=== PATIENT | male | born 1960 | race Caucasian/White ===

== ENCOUNTER 2016-05-14 22:11 | Observation (INO) | payer BC ==
[~2016-05-14] VITALS: Ht 175.3 cm; Wt 117.9 kg
[2016-05-14 23:30] VITALS: BP 132/81
[2016-05-15] MEDS ORDERED: TRAMADOL 50 MG TABLET. PO PRN (00:30)
[2016-05-15] MEDS ORDERED: ZOLPIDEM 5 MG TABLET. PO PRN (00:30)
[2016-05-15] MEDS ORDERED: ONDANSETRON ODT 4 MG TAB.RAPDIS PO PRN (00:30)
[2016-05-15] MEDS ORDERED: DIPHENHYDRAMINE HCL 25 MG CAPSULE PO PRN (00:30)
[2016-05-15 03:00] VITALS: BP 131/64
[2016-05-15 05:24] LABS: BASO % 0 % (0-3); EOS % 0 % (0-3); HEMATOCRIT 44.2 % (39.0-53.0); HEMOGLOBIN 14.7 g/dL (13.0-17.5); LYMPH # 0.7 x10^3/uL (1.0-4.8); LYMPH % 9 % (24-48); MEAN CORPUSCULAR HEMOGLOBIN 31 pg (25-35); MEAN CORPUSCULAR HGB CONC 33 g/dL (31-37); MEAN CORPUSCULAR VOLUME 92 fL (79-100); MONO % 1 % (0-9); NEUT % 90 % (31-73); PLATELET COUNT 175 x10^3/uL (140-400); RED BLOOD COUNT 4.83 x10^6/uL (4.30-5.70); RED CELL DISTRIBUTION WIDTH 14.4 % (11.5-14.5); WHITE BLOOD COUNT 8.8 x10^3/uL (4.0-11.0)
[2016-05-15 06:08] LABS: ALBUMIN 3.2 g/dL (3.4-5.0); ALBUMIN/GLOBULIN RATIO 0.9 (1.0-1.7); CALCIUM 8.4 mg/dL (8.5-10.1); CREATININE 1.3 mg/dL (0.7-1.3); GFR 57.7; MAGNESIUM 2.3 mg/dL (1.8-2.4); POTASSIUM 4.9 mmol/L (3.5-5.1); TOTAL BILIRUBIN 0.9 mg/dL (0.2-1.0); TOTAL PROTEIN 6.8 g/dL (6.4-8.2)
[2016-05-15 07:00] VITALS: BP 135/77
--- NOTE | 2016-05-15 09:14 | PDOC1 ---
History and Physical Date of Admission Date of Admission DATE: 05/15/16 TIME: 09:07 Identification/Chief Complaint Chief Complaint dizzyness, weakness Source Source: Caregiver, Chart review, Patient History of Present Illness History of Present Illness dizzyness and vertigo symptoms yesterday. worsened, then had word finding difficulties, and change in behavoir per his , Very irritable, then very emotional and tearful, which is not like him He has arm and leg weakness at the time, that he now feels improved. His reports slurred speech yesterday afternoon which he did not notice. Past Medical History Past Medical History multiple concussions, 5 loss of memory events Cardiovascular: HTN Pulmonary: No pertinent hx GI: No pertinent hx Heme/Onc: No pertinent hx Infectious disease: No pertinent hx ENT: No pertinent hx Renal/: No pertinent hx Endocrine: No pertinent hx, Other (Low testosterone) Family History Family History: No Significant Social History Smoke: No ALCOHOL: occassional Drugs: None Current Medications Current Medications Current Medications Tramadol HCl (Ultram) 50 mg PRN Q6HRS PRN PO MODERATE PAIN; Start 05/15/16 at 00:30 Ondansetron HCl (Zofran Odt) 4 mg PRN Q8HRS PRN PO NAUSEA/VOMITING; Start 05/15 at 00:30 Diphenhydramine HCl (Benadryl) 25 mg PRN QHS PRN PO INSOMNIA; Start 05/15/16 at 00:30 Zolpidem Tartrate (Ambien) 5 mg PRN QHS PRN PO INSOMNIA Last administered on t 00:44; Start 05/15/16 at 00:30 Allergies Allergies: Coded Allergies: No Known Drug Allergies (Unverified , 05/15/16) ROS 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, 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, 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 General: YES: Fatigue, No: Appetite, Chills, Malaise, Night Sweats, Other PSYCHOLOGICAL ROS: YES: Irritablity, Memory difficulties, No: Anxiety, Behavioral Disorder, Concentration difficultie, Decreased libido , Depression, Disorientation, Hallucinations, Hostility, Mood Swings, Obsessive thoughts, Other, Physical abuse, Sexual abuse, Sleep disturbances, Suicidal ideation Eyes: No Blurry vision, No Decreased vision, No Double vision, No Dry eyes, No Excessive tearing, No Eye Pain, No Itchy Eyes, No Loss of vision, No Other, No Photophobia, No Scotomata, No Uses contacts, No Uses glasses HEENT: No: Epistaxis, Heacaches, Hearing change, Nasal congestion, Nasal discharge, Oral lesions, Other, Sinus pain, Sneezing, Snoring, Sore Throat, Tinnitus, Vertigo, Visual Changes, Vocal changes Cardiovascular: No Chest Pain, No Edema, No Lt Headedness, No Orthopnea, No Other, No Palpitations, No Paroxysmal Noc. Dyspnea Gastrointestinal: No Abdominal Pain, No Constipation, No Diarrhea, No Hematochezia, No Melena, No Nausea, No Other, No Vomiting Genitourinary: No , No , No , No , No , No , No , No Discharge, No Dysuria, No Flank Pain, No Frequency, No Hematuria, No Incontinence, No Other, No Pain, No Retention, No Urgency Musculoskeletal: Yes Muscular Weakness, No Gait Disturbance, No Joint Pain, No Joint Stiffness, No Joint Swelling, No Muscle Pain, No Other, No Pain In:, No Swelling In: Neurological: No Behavorial Changes, No Bowel/Bladder ControlChng, No Confusion , No Dizziness, No Gait Disturbance, No Headaches, No Impaired Coord/balance, No Memory Loss, No Numbness/Tingling, No Other, No Seizures, No Speech Problems , No Tremors, No Visual Changes, No Weakness Skin: No Acne, No Dry Skin, No Eczema, No Hair Changes, No Lumps, No Mole Changes, No Mottling, No Nail Changes, No Other, No Pruritus, No Rash, No Skin Lesion Changes Physical Exam General: Alert, Oriented X3, Cooperative, No acute distress HEENT: EOMI, Mucous membr. moist/pink Lungs: Clear to auscultation, Normal air movement Heart: S1S2, no gallops, no murmurs Abdomen: Normal bowel sounds, Soft (obese, NT) Rectal Exam: not examined Extremities: No clubbing Skin: No rashes, No breakdown Neuro: Normal speech, Strength at 5/5 X4 ext, Normal tone, Sensation intact, Cranial nerves 3-12 NL Psych/Mental Status: Mental status NL, Mood NL Vitals Vitals Vital Signs Date Time Temp Pulse Resp B/P Pulse Ox O2 Delivery O2 Flow Rate FiO2 05/15/16 03:00 97.7 80 17 131/64 95 Room Air 97.7 Labs Labs Laboratory Tests Test 05/15/16 04:20 05/15/16 04:25 Sodium Level 142mmol/L (136-145) Potassium Level 4.9mmol/L (3.5-5.1) Chloride Level 108mmol/L (98-107) Carbon Dioxide Level 24mmol/L (21-32) Anion Gap 10 (6-14) Blood Urea Nitrogen 11mg/dL (8-26) Creatinine 1.3mg/dL (0.7-1.3) Estimated GFR (Cockcroft-Gault) 57.7 BUN/Creatinine Ratio 8 (6-20) Glucose Level 166mg/dL (70-99) Calcium Level 8.4mg/dL (8.5-10.1) Magnesium Level 2.3mg/dL (1.8-2.4) Total Bilirubin 0.9mg/dL (0.2-1.0) Aspartate Amino Transf (AST/SGOT) 19U/L (15-37) Alanine Aminotransferase (ALT/SGPT) 25U/L (16-63) Alkaline Phosphatase 87U/L (46-116) Total Protein 6.8g/dL (6.4-8.2) Albumin 3.2g/dL (3.4-5.0) Albumin/Globulin Ratio 0.9 (1.0-1.7) White Blood Count 8.8x10^3/uL (4.0-11.0) Red Blood Count 4.83x10^6/uL (4.30-5.70) Hemoglobin 14.7g/dL (13.0-17.5) Hematocrit 44.2% (39.0-53.0) Mean Corpuscular Volume 92fL (79-100) Mean Corpuscular Hemoglobin 31pg (25-35) Mean Corpuscular Hemoglobin Concent 33g/dL (31-37) Red Cell Distribution Width 14.4% (11.5-14.5) Platelet Count 175x10^3/uL (140-400) Neutrophils (%) (Auto) 90% (31-73) Lymphocytes (%) (Auto) 9% (24-48) Monocytes (%) (Auto) 1% (0-9) Eosinophils (%) (Auto) 0% (0-3) Basophils (%) (Auto) 0% (0-3) Neutrophils # (Auto) 8.0x10^3uL (1.8-7.7) Lymphocytes # (Auto) 0.7x10^3/uL (1.0-4.8) Monocytes # (Auto) 0.1x10^3/uL (0.0-1.1) Eosinophils # (Auto) 0.0x10^3/uL (0.0-0.7) Basophils # (Auto) 0.0x10^3/uL (0.0-0.2) Thyroid Stimulating Hormone (TSH) 0.498uIU/mL (0.358-3.74) Laboratory Tests Test 05/15/16 04:20 05/15/16 04:25 Sodium Level 142mmol/L (136-145) Potassium Level 4.9mmol/L (3.5-5.1) Chloride Level 108mmol/L (98-107) Carbon Dioxide Level 24mmol/L (21-32) Anion Gap 10 (6-14) Blood Urea Nitrogen 11mg/dL (8-26) Creatinine 1.3mg/dL (0.7-1.3) Estimated GFR (Cockcroft-Gault) 57.7 BUN/Creatinine Ratio 8 (6-20) Glucose Level 166mg/dL (70-99) Calcium Level 8.4mg/dL (8.5-10.1) Magnesium Level 2.3mg/dL (1.8-2.4) Total Bilirubin 0.9mg/dL (0.2-1.0) Aspartate Amino Transf (AST/SGOT) 19U/L (15-37) Alanine Aminotransferase (ALT/SGPT) 25U/L (16-63) Alkaline Phosphatase 87U/L (46-116) Total Protein 6.8g/dL (6.4-8.2) Albumin 3.2g/dL (3.4-5.0) Albumin/Globulin Ratio 0.9 (1.0-1.7) White Blood Count 8.8x10^3/uL (4.0-11.0) Red Blood Count 4.83x10^6/uL (4.30-5.70) Hemoglobin 14.7g/dL (13.0-17.5) Hematocrit 44.2% (39.0-53.0) Mean Corpuscular Volume 92fL (79-100) Mean Corpuscular Hemoglobin 31pg (25-35) Mean Corpuscular Hemoglobin Concent 33g/dL (31-37) Red Cell Distribution Width 14.4% (11.5-14.5) Platelet Count 175x10^3/uL (140-400) Neutrophils (%) (Auto) 90% (31-73) Lymphocytes (%) (Auto) 9% (24-48) Monocytes (%) (Auto) 1% (0-9) Eosinophils (%) (Auto) 0% (0-3) Basophils (%) (Auto) 0% (0-3) Neutrophils # (Auto) 8.0x10^3uL (1.8-7.7) Lymphocytes # (Auto) 0.7x10^3/uL (1.0-4.8) Monocytes # (Auto) 0.1x10^3/uL (0.0-1.1) Eosinophils # (Auto) 0.0x10^3/uL (0.0-0.7) Basophils # (Auto) 0.0x10^3/uL (0.0-0.2) Thyroid Stimulating Hormone (TSH) 0.498uIU/mL (0.358-3.74) VTE Prophylaxis Ordered VTE Prophylaxis Devices: No VTE Pharmacological Prophylaxi: No Assessment/Plan Assessment/Plan Arm and leg weakness dizzyness, prior vertigo some word finding difficulties,. reports slurred speech yesterday consider TIA sx, w/u MRI, carotids, neuro consult obesity, BMI 38 obs, try to DC WILTON Powell MD May 15, 2016 09:14
[2016-05-15] MEDS ORDERED: LORAZEPAM 2 MG/ML VIAL IV PRN (09:15)
[2016-05-15 11:00] VITALS: BP 136/80
[2016-05-15 12:00] LABS: % BASOS 1 % (0-3); PLT ESTIMATE ADEQUATE (ADEQUATE)
[2016-05-15 13:29] LABS: BARBITURATES NEG (NEG); BENZODIAZEPINES NEG (NEG); CANNABINOIDS NEG (NEG); COCAINE NEG (NEG); ETHANOL, URINE NEG (NEG); METHADONE NEG (NEG); OPIATES NEG (NEG); PHENCYCLIDINE NEG (NEG)
[2016-05-15 14:11] LABS: BILIRUBIN,URINE NEGATIVE (NEG); GLUCOSE,URINE 500 mg/dL (NEG); NITRITE,URINE NEGATIVE (NEG); PROTEIN,URINE NEGATIVE (NEG-TRACE); UROBILINOGEN,URINE 0.2 mg/dL (0.2 mg/dL)
[2016-05-15 14:22] LABS: BACTERIA,URINE 0 /HPF (0-FEW); RBC,URINE RARE /HPF (0-2); SQUAMOUS EPITHELIAL CELL,UR OCC /LPF; WBC,URINE 0 /HPF (0-4)
--- NOTE | 2016-05-15 14:26 | PDOC2 ---
NEUROLOGY CONSULT Date of Admission Date of Admission DATE: 05/15/16 TIME: 14:12 Reason for Consult Reason for Consult: IMPRESSION: Vertigo confusion Slurred speech Word finding difficulties Generalized weakness HTN Obesity Drinking RECOMMENDATIONS/PLAN: ASA 325 mg daily. Brain MRI Carotid A US + Doppler, ordered by floor team. Lab: see orders. Patient education for alcohol abstinence. HISTORY OF THE PRESENT ILLNESS: 55-y-old male patient with Hx of HTN had symptoms of vertigo feeling room and self spinning, generalized weakness and unable to keep balance in am of 05/14. His reported that she noted he was confused, his speech was slurred and he had difficulties finding words. She also noted his perspiration. He had similar symptoms again with nausea and vomiting in pm, so he was hospitalized in [facility] due to concerns of CVA. He said he had a similar episode about 10 years ago, and confusional episodes with brief memory loss 5 times in the past. PAST MEDICAL HISTORY: Please see above. PAST SURGERY HISTORY: No major surgery recently. ALLERGY: Unknown MEDICATIONS: Refer to [facility] FAMILY HISTORY: Non contributory. SOCIAL HISTORY: Lives with his at home. Denies smoking and illicit drug use. He drinks several beers a week x 35 years. REVIEW OF SYSTEMS: Constitutional: No malnutrition, weight loss, cachexia. Head: No traumatic brain or head injury. Skin: No edema, or rash. Ear: No infection, tinnitus. Eyes: No vision loss or color blindness. Nose: No bleeding or purulent discharges. Hearing: No hearing decrease. Neck: No injury. Cardiac: HTN. Pulmonary: No COPD. GI: No GI ulcer, GI bleeding. Urinary/genital: No dysuria, hematuria, incontinence, urinary retention. Endocrinologic: obesity. Skeletomuscular: Generalized weakness. Neurological: see HP. Psychiatric: Denies drug use/abuse. Otherwise, not [id number] review of systems. PHYSICAL EXAMINATION: General appearance is in no acute distress. HEENT: Normocephalic and nontraumatic. Eyes, nose, ears, and throat are unremarkable. Neck is supple. No lymphadenopathy. No bruits are heard over the carotid artery. No crepitus. Cardiovascular: S1, S2, regular rate and rhythm. Pulmonary: Clear to auscultation bilaterally. Abdomen: Bowel sounds are positive. Abdomen is soft, nontender, and nondistended. Extremities: No rash, lesions, or edema. No restriction of range of motion NEUROLOGICAL EXAMINATION: Alert Oriented to time, place and person. PERRL. EOMI. CN: no focal findings. Muscle tone: within normal. Muscle strength: 5 DTR: 2 Plantar reflex: Flexor response bilaterally Gait: At baseline normal. Sensory exam: no abnormal findings. No cerebellar signs elicited. F-T-N test accurate. Current Medications Current Medications Current Medications Tramadol HCl (Ultram) 50 mg PRN Q6HRS PRN PO MODERATE PAIN; Start 05/15/16 at 00:30 Ondansetron HCl (Zofran Odt) 4 mg PRN Q8HRS PRN PO NAUSEA/VOMITING; Start 05/15 at 00:30 Diphenhydramine HCl (Benadryl) 25 mg PRN QHS PRN PO INSOMNIA; Start 05/15/16 at 00:30 Zolpidem Tartrate (Ambien) 5 mg PRN QHS PRN PO INSOMNIA Last administered on t 00:44; Start 05/15/16 at 00:30 Lorazepam (Ativan) 1 mg PRN Q4HRS PRN IV ANXIETY / AGITATION; Start 05/15/16 at 09:15 Allergies Allergies: Coded Allergies: No Known Drug Allergies (Unverified , 05/15/16) Vitals VITALS Vital Signs Date Time Temp Pulse Resp B/P Pulse Ox O2 Delivery O2 Flow Rate FiO2 05/15/16 11:00 98.4 85 18 136/80 Room Air 95.0 98.4 05/15/16 07:00 94 Labs Labs Laboratory Tests Test 05/15/16 04:20 05/15/16 04:25 05/15/16 13:00 Sodium Level 142mmol/L (136-145) Potassium Level 4.9mmol/L (3.5-5.1) Chloride Level 108mmol/L (98-107) Carbon Dioxide Level 24mmol/L (21-32) Anion Gap 10 (6-14) Blood Urea Nitrogen 11mg/dL (8-26) Creatinine 1.3mg/dL (0.7-1.3) Estimated GFR (Cockcroft-Gault) 57.7 BUN/Creatinine Ratio 8 (6-20) Glucose Level 166mg/dL (70-99) Calcium Level 8.4mg/dL (8.5-10.1) Magnesium Level 2.3mg/dL (1.8-2.4) Total Bilirubin 0.9mg/dL (0.2-1.0) Aspartate Amino Transf (AST/SGOT) 19U/L (15-37) Alanine Aminotransferase (ALT/SGPT) 25U/L (16-63) Alkaline Phosphatase 87U/L (46-116) Total Protein 6.8g/dL (6.4-8.2) Albumin 3.2g/dL (3.4-5.0) Albumin/Globulin Ratio 0.9 (1.0-1.7) White Blood Count 8.8x10^3/uL (4.0-11.0) Red Blood Count 4.83x10^6/uL (4.30-5.70) Hemoglobin 14.7g/dL (13.0-17.5) Hematocrit 44.2% (39.0-53.0) Mean Corpuscular Volume 92fL (79-100) Mean Corpuscular Hemoglobin 31pg (25-35) Mean Corpuscular Hemoglobin Concent 33g/dL (31-37) Red Cell Distribution Width 14.4% (11.5-14.5) Platelet Count 175x10^3/uL (140-400) Neutrophils (%) (Auto) 90% (31-73) Lymphocytes (%) (Auto) 9% (24-48) Monocytes (%) (Auto) 1% (0-9) Eosinophils (%) (Auto) 0% (0-3) Basophils (%) (Auto) 0% (0-3) Neutrophils # (Auto) 8.0x10^3uL (1.8-7.7) Lymphocytes # (Auto) 0.7x10^3/uL (1.0-4.8) Monocytes # (Auto) 0.1x10^3/uL (0.0-1.1) Eosinophils # (Auto) 0.0x10^3/uL (0.0-0.7) Basophils # (Auto) 0.0x10^3/uL (0.0-0.2) Segmented Neutrophils % 90% (35-66) Lymphocytes % 7% (24-48) Monocytes % 1% (0-10) Basophils % 1% (0-3) Metamyelocytes % 1% (0-0) Platelet Estimate Adequate (ADEQUATE) Thyroid Stimulating Hormone (TSH) 0.498uIU/mL (0.358-3.74) Urine Opiates Screen Neg (NEG) Urine Methadone Screen Neg (NEG) Urine Barbiturates Neg (NEG) Urine Phencyclidine Screen Neg (NEG) Urine Amphetamine/Methamphetamine Neg (NEG) Urine Benzodiazepines Screen Neg (NEG) Urine Cocaine Screen Neg (NEG) Urine Cannabinoids Screen Neg (NEG) Urine Ethyl Alcohol Neg (NEG) Laboratory Tests Test 05/15/16 04:20 05/15/16 04:25 05/15/16 13:00 Sodium Level 142mmol/L (136-145) Potassium Level 4.9mmol/L (3.5-5.1) Chloride Level 108mmol/L (98-107) Carbon Dioxide Level 24mmol/L (21-32) Anion Gap 10 (6-14) Blood Urea Nitrogen 11mg/dL (8-26) Creatinine 1.3mg/dL (0.7-1.3) Estimated GFR (Cockcroft-Gault) 57.7 BUN/Creatinine Ratio 8 (6-20) Glucose Level 166mg/dL (70-99) Calcium Level 8.4mg/dL (8.5-10.1) Magnesium Level 2.3mg/dL (1.8-2.4) Total Bilirubin 0.9mg/dL (0.2-1.0) Aspartate Amino Transf (AST/SGOT) 19U/L (15-37) Alanine Aminotransferase (ALT/SGPT) 25U/L (16-63) Alkaline Phosphatase 87U/L (46-116) Total Protein 6.8g/dL (6.4-8.2) Albumin 3.2g/dL (3.4-5.0) Albumin/Globulin Ratio 0.9 (1.0-1.7) White Blood Count 8.8x10^3/uL (4.0-11.0) Red Blood Count 4.83x10^6/uL (4.30-5.70) Hemoglobin 14.7g/dL (13.0-17.5) Hematocrit 44.2% (39.0-53.0) Mean Corpuscular Volume 92fL (79-100) Mean Corpuscular Hemoglobin 31pg (25-35) Mean Corpuscular Hemoglobin Concent 33g/dL (31-37) Red Cell Distribution Width 14.4% (11.5-14.5) Platelet Count 175x10^3/uL (140-400) Neutrophils (%) (Auto) 90% (31-73) Lymphocytes (%) (Auto) 9% (24-48) Monocytes (%) (Auto) 1% (0-9) Eosinophils (%) (Auto) 0% (0-3) Basophils (%) (Auto) 0% (0-3) Neutrophils # (Auto) 8.0x10^3uL (1.8-7.7) Lymphocytes # (Auto) 0.7x10^3/uL (1.0-4.8) Monocytes # (Auto) 0.1x10^3/uL (0.0-1.1) Eosinophils # (Auto) 0.0x10^3/uL (0.0-0.7) Basophils # (Auto) 0.0x10^3/uL (0.0-0.2) Segmented Neutrophils % 90% (35-66) Lymphocytes % 7% (24-48) Monocytes % 1% (0-10) Basophils % 1% (0-3) Metamyelocytes % 1% (0-0) Platelet Estimate Adequate (ADEQUATE) Thyroid Stimulating Hormone (TSH) 0.498uIU/mL (0.358-3.74) Urine Opiates Screen Neg (NEG) Urine Methadone Screen Neg (NEG) Urine Barbiturates Neg (NEG) Urine Phencyclidine Screen Neg (NEG) Urine Amphetamine/Methamphetamine Neg (NEG) Urine Benzodiazepines Screen Neg (NEG) Urine Cocaine Screen Neg (NEG) Urine Cannabinoids Screen Neg (NEG) Urine Ethyl Alcohol Neg (NEG) KEY RANDALL MD May 15, 2016 14:26
--- NOTE | 2016-05-15 14:58 | RAD ---
EXAM: Carotid Doppler sonogram. HISTORY: Vertigo, weakness. TECHNIQUE: Lr scale and color Doppler sonographic evaluation of the neck with spectral waveform analysis was performed and static images are submitted for review. FINDINGS: RIGHT: The peak systolic velocity within the common carotid artery is 86 cm/sec. The peak systolic velocity within the internal carotid artery is 67 cm/sec and the end diastolic velocity within the internal carotid artery is 23 cm/sec. The ICA/CCA ratio is 0.78. Grayscale images demonstrate no significant plaquing. LEFT: The peak systolic velocity within the common carotid artery is 104 cm/sec. The peak systolic velocity within the internal carotid artery is 95 cm/sec and the end diastolic velocity within the internal carotid artery is 18 cm/sec. The ICA/CCA ratio is 1.06. Grayscale images demonstrate no significant plaquing. There is antegrade flow within both vertebral arteries. IMPRESSION: 1. No evidence of hemodynamically significant stenosis. PQRS Compliance Statement - Stenosis calculations for CT, MR and conventional angiography are based upon measurement of the distal ICA diameter in accordance with the NASCET methodology. Stenosis calculations for carotid ultrasound studies are derived from validated velocity criteria which are known to correlate with the NASCET methodology.
[2016-05-15 15:16] VITALS: BP 134/87
[2016-05-15] MEDS ORDERED: GADOBUTROL 10 MMOL/10 ML VIAL IV ONE (15:30)
--- NOTE | 2016-05-15 16:10 | RAD ---
BRAIN WO/W CONTRAST Indication: VERTIGO, WEAKNESS, NO SX HX, NO PRIORS, 10ML GADAVIST Reason: TIA sx, vertigo, weakness / Spl. Instructions: / History: COMPARISON: 05/14/2016 TECHNIQUE: Axial diffusion weighted imaging was obtained. Additional sagittal T1, axial T1, axial FLAIR, and axial T2 weighted imaging of the brain was also performed. Postcontrast T1 weighted imaging was also performed after intravenous administration of gadolinium based contrast. FINDINGS: No abnormal signal within the brain parenchyma. No abnormal intracranial enhancement. No evidence of acute intracranial hemorrhage. No restricted diffusion to indicate acute infarct. No extra-axial fluid collections. No midline shift or mass effect. Ventricular size is appropriate. Midline structures have a normal anatomic configuration. Pituitary gland and infundibulum are unremarkable. Basal cisterns are patent. Arterial flow voids at the skull base and major dural venous sinuses are maintained. Globes and orbits are unremarkable. Paranasal sinuses and mastoid air cells are clear. IMPRESSION: No acute intracranial abnormality. No abnormal enhancement or mass. Electronically signed by: Chris Mccormack (May 15, 2016 16:08:52)
[2016-05-15] MEDS: ASPIRIN 325 MG TABLET PO SCH (16:35)
[2016-05-15 19:00] VITALS: BP_SYST 143; BP_SYST 160; BP_DIAS 90; BP_DIAS 91
--- NOTE | 2016-05-15 19:23 | EEG ---
DATE OF SERVICE: 05/15/2016 EEG NUMBER: [id number] OBJECTIVE: This is a 55-year-old male patient with history of confusional episodes and mental status changes. EEG was requested to help rule out seizure. METHOD: 20 electrodes were applied according to the International 10-20 electrode placement system. EKG monitoring, hyperventilation, intermittent photic stimulation, monopolar and bipolar montages are routinely utilized. The record was obtained on a digital system with video monitoring. MEDICATIONS: No anti-seizure medications. FINDINGS: 1. Background: The patient was recorded in the awake, drowsy and sleep states. The overall background amplitude is 10-30 microvolts. A posterior dominant rhythm of 8-10 Hz is observed. 2. Abnormalities: No specific epileptiform discharge or electrographic seizure is seen. No focal or diffuse slowing. 3. Activation: Hyperventilation was performed with good efforts and normal response. Intermittent photic stimulation was performed with photic driving. No specific epileptiform discharge or electrographic seizure induced. IMPRESSION: This EEG is a normal study for the awake, drowsy and sleep states. No focal, lateralizing, specific epileptiform discharge, or electrographic seizure is seen. KEY RANDALL MD DR: PERRY/jacob JOB#: [id number] / [id number]
[2016-05-15 23:00] VITALS: BP 127/77
[2016-05-16 03:00] VITALS: BP 112/73
[2016-05-16 07:00] VITALS: BP 119/82
[2016-05-16 07:51] LABS: CHOLESTEROL/HDL RATIO 3.4
[2016-05-16] MEDS: ASPIRIN 325 MG TABLET PO SCH (08:54)
[2016-05-16] MEDS ORDERED: MULT1TAB90 PO (10:43)
[2016-05-16] MEDS ORDERED: MECL25TA3 PO (10:43)
[2016-05-16] MEDS ORDERED: CHOL2000 PO (10:43)
[2016-05-16] MEDS ORDERED: CYAN1TAB19 PO (10:43)
[2016-05-16] MEDS ORDERED: ZINC SULFATE 220 MG CAPSULE. PO SCH (11:00)
[2016-05-16] MEDS ORDERED: VITAMIN B12,B9,B6 COMPLEX 1 TABLET. PO SCH (11:00)
[2016-05-16] MEDS ORDERED: CHOLECALCIFEROL (VITAMIN D3) 5,000 UNIT CAPSULE PO SCH (11:00)
[2016-05-16] MEDS ORDERED: CYANOCOBALAMIN (VITAMIN B-12) 1,000 MCG/ML VIAL IM ONE (11:00)
[2016-05-16] MEDS ORDERED: MULTIVITAMIN with MINERAL TABLET. PO SCH (11:00)
--- NOTE | 2016-05-16 11:03 | CARD ---
APPROVED REPORT EXAM: Two-dimensional and M-mode echocardiogram with Doppler and color Doppler. Other Information Quality : GoodHR: 90bpm Rhythm : NSR, PVC's INDICATION CVA/TIA Echo Enhancing Agent Indication: Rule Out Septal Defect Agent/Amount Used: Agitated Saline 8mL 2D DIMENSIONS RVDd3.9 (2.9-3.5cm)Left Atrium(2D)3.5 (1.6-4.0cm) IVSd1.2 (0.7-1.1cm)Aortic Root(2D)3.2 (2.0-3.7cm) LVDd5.7 (3.9-5.9cm)LVOT Diameter2.3 (1.8-2.4cm) PWd1.1 (0.7-1.1cm)LVDs3.2 (2.5-4.0cm) FS (%) 42.9 %SV116.9 ml LVEF(%)73.4 (>50%) Aortic Valve AoV Peak Toy.158.9cm/sAoV VTI26.7cm AO Peak GR.10.1mmHgLVOT Peak Toy.108.5cm/s LVOT VTI 21.80cmAO Mean GR.6mmHg AMANDA (VMAX)2.47em9YSD (VTI)3.28cm2 Mitral Valve MV E Krwqgwcj07.7cm/sMV DECEL UCWQ130io MV A Qtwqcsnh28.0cm/sMV E Mean Gr.2mmHg MV NXA28tzK/A Ratio0.9 MV A Skdlwmfw65ipONH (PHT)3.74cm2 TDI E/Lateral E'5.5E/Medial E'8.6 Pulmonary Valve PV Peak Uatilkhn971.6cm/sPV Peak Grad.6mmHg RVOT VTI13.2cm Tricuspid Valve TR P. Bhescjjo989ju/sRAP YOUIIDHK8jdPh TR Peak Gr.09wyAbAIJO25aqQi Pulmonary Vein S1 Tlhatund00.1cm/sD2 Ismdrjos85.0cm/s PVa [id number] LEFT VENTRICLE The left ventricle is normal size. There is mild concentric left ventricular hypertrophy. Left ventri tavares systolic function is normal. The Ejection Fraction is 60-65%. There is normal LV segmental wall m otion. Transmitral Doppler flow pattern is Grade I-abnormal relaxation pattern. There is no ventricul ar septal defect visualized. RIGHT VENTRICLE The right ventricle is normal size. There is normal right ventricular wall thickness. The right ventr icular systolic function is normal. ATRIA The left atrium size is normal. The right atrium size is normal. The interatrial septum is intact wit h no evidence for an atrial septal defect or patent foramen ovale as noted on 2-D or Doppler imaging. No evidence of PFO by saline contrast injection. AORTIC VALVE The aortic valve is normal in structure and function. The aortic valve is trileaflet. Doppler and Col or Flow revealed no significant aortic regurgitation. There is no significant aortic valvular stenosi s. MITRAL VALVE The mitral valve is normal in structure and function. There is no evidence of mitral valve prolapse. There is no mitral valve stenosis. Doppler and Color Flow revealed no mitral valve regurgitation note d. TRICUSPID VALVE The tricuspid valve is normal in structure. Doppler and Color Flow revealed mild tricuspid regurgitat ion. The PA pressure was estimated at 33 mmHg. PULMONIC VALVE Doppler and Color Flow revealed no pulmonic valvular regurgitation. There is no pulmonic valvular caron nosis. GREAT VESSELS The aortic root is normal in size. The ascending aorta is normal in size. The IVC is normal in size a nd collapses >50% with inspiration. PERICARDIAL EFFUSION There is no evidence of significant pericardial effusion. Critical Notification Critical Value: No <Conclusion> Left ventricle systolic function is normal. The Ejection Fraction is 60-65%. No significant valvular disease.
--- NOTE | 2016-05-16 11:32 | PDOC ---
PROGRESS NOTES Assessment Problems Medical Problems: (1) Chest pain Status: Acute (2) Dizziness Status: Acute Vertigo, no evidence of central cause, better, most likely labyrinthitis. He had a similar episode 10 years ago. Confusion is a typical of course, but may have been brought on by the severe vertigo feelings. Prior history of confusion episodes, EEG negative for seizure activity Plan Continue meclizine and supportive care. Subjective Feels better Objective Vital Signs Date Time Temp Pulse Resp B/P Pulse Ox O2 Delivery O2 Flow Rate FiO2 05/16/16 08:00 Room Air 05/16/16 07:00 99.9 73 16 119/82 95 99.9 05/15/16 11:00 95.0 Intake and Output 05/16/16 07:00 Intake Total 2050 ml Balance 2050 ml Intake Oral 2050 ml # Voids 1 PHYSICAL EXAM Tympanic membranes are clear Alert. Oriented to time, place and person. PERRL. EOMI. CN: no focal findings. Muscle tone: normal. Muscle strength: 5/5 DTR: 1+ Plantar reflex: flexor Gait: not tested, he still felt a little bit dizzy Sensory exam: no abnormal findings. No cerebellar signs elicited. Review of Relevant I have reviewed the following items heber (where applicable) has been applied. Labs Laboratory Tests Test 05/15/16 04:20 05/15/16 04:25 05/15/16 13:00 05/16/16 06:50 Sodium Level 142mmol/L (136-145) Potassium Level 4.9mmol/L (3.5-5.1) Chloride Level 108mmol/L (98-107) Carbon Dioxide Level 24mmol/L (21-32) Anion Gap 10 (6-14) Blood Urea Nitrogen 11mg/dL (8-26) Creatinine 1.3mg/dL (0.7-1.3) Estimated GFR (Cockcroft-Gault) 57.7 BUN/Creatinine Ratio 8 (6-20) Glucose Level 166mg/dL (70-99) Calcium Level 8.4mg/dL (8.5-10.1) Magnesium Level 2.3mg/dL (1.8-2.4) Total Bilirubin 0.9mg/dL (0.2-1.0) Aspartate Amino Transf (AST/SGOT) 19U/L (15-37) Alanine Aminotransferase (ALT/SGPT) 25U/L (16-63) Alkaline Phosphatase 87U/L (46-116) Total Protein 6.8g/dL (6.4-8.2) Albumin 3.2g/dL (3.4-5.0) Albumin/Globulin Ratio 0.9 (1.0-1.7) White Blood Count 8.8x10^3/uL (4.0-11.0) Red Blood Count 4.83x10^6/uL (4.30-5.70) Hemoglobin 14.7g/dL (13.0-17.5) Hematocrit 44.2% (39.0-53.0) Mean Corpuscular Volume 92fL (79-100) Mean Corpuscular Hemoglobin 31pg (25-35) Mean Corpuscular Hemoglobin Concent 33g/dL (31-37) Red Cell Distribution Width 14.4% (11.5-14.5) Platelet Count 175x10^3/uL (140-400) Neutrophils (%) (Auto) 90% (31-73) Lymphocytes (%) (Auto) 9% (24-48) Monocytes (%) (Auto) 1% (0-9) Eosinophils (%) (Auto) 0% (0-3) Basophils (%) (Auto) 0% (0-3) Neutrophils # (Auto) 8.0x10^3uL (1.8-7.7) Lymphocytes # (Auto) 0.7x10^3/uL (1.0-4.8) Monocytes # (Auto) 0.1x10^3/uL (0.0-1.1) Eosinophils # (Auto) 0.0x10^3/uL (0.0-0.7) Basophils # (Auto) 0.0x10^3/uL (0.0-0.2) Segmented Neutrophils % 90% (35-66) Lymphocytes % 7% (24-48) Monocytes % 1% (0-10) Basophils % 1% (0-3) Metamyelocytes % 1% (0-0) Platelet Estimate Adequate (ADEQUATE) Vitamin B12 Level 368pg/mL (211-946) Thyroid Stimulating Hormone (TSH) 0.498uIU/mL (0.358-3.74) Urine Collection Type Unknown Urine Color Yellow Urine Clarity Clear Urine pH 6.0 Urine Specific [place] 1.015 Urine Protein Negativemg/dL (NEG-TRACE) Urine Glucose (UA) 500mg/dL (NEG) Urine Ketones (Stick) Negativemg/dL (NEG) Urine Blood Negative (NEG) Urine Nitrite Negative (NEG) Urine Bilirubin Negative (NEG) Urine Urobilinogen Dipstick 0.2mg/dL (0.2 mg/dL) Urine Leukocyte Esterase Negative (NEG) Urine RBC Rare/HPF (0-2) Urine WBC 0/HPF (0-4) Urine Squamous Epithelial Cells Occ/LPF Urine Bacteria 0/HPF (0-FEW) Urine Opiates Screen Neg (NEG) Urine Methadone Screen Neg (NEG) Urine Barbiturates Neg (NEG) Urine Phencyclidine Screen Neg (NEG) Urine Amphetamine/Methamphetamine Neg (NEG) Urine Benzodiazepines Screen Neg (NEG) Urine Cocaine Screen Neg (NEG) Urine Cannabinoids Screen Neg (NEG) Urine Ethyl Alcohol Neg (NEG) Triglycerides Level 109mg/dL (0-150) Cholesterol Level 156mg/dL (0-200) LDL Cholesterol, Calculated 88mg/dL (0-100) VLDL Cholesterol, Calculated 22mg/dL (0-40) HDL Cholesterol 46mg/dL (40-60) Cholesterol/HDL Ratio 3.4 Laboratory Tests Test 05/15/16 13:00 05/16/16 06:50 Urine Collection Type Unknown Urine Color Yellow Urine Clarity Clear Urine pH 6.0 Urine Specific [place] 1.015 Urine Protein Negativemg/dL (NEG-TRACE) Urine Glucose (UA) 500mg/dL (NEG) Urine Ketones (Stick) Negativemg/dL (NEG) Urine Blood Negative (NEG) Urine Nitrite Negative (NEG) Urine Bilirubin Negative (NEG) Urine Urobilinogen Dipstick 0.2mg/dL (0.2 mg/dL) Urine Leukocyte Esterase Negative (NEG) Urine RBC Rare/HPF (0-2) Urine WBC 0/HPF (0-4) Urine Squamous Epithelial Cells Occ/LPF Urine Bacteria 0/HPF (0-FEW) Urine Opiates Screen Neg (NEG) Urine Methadone Screen Neg (NEG) Urine Barbiturates Neg (NEG) Urine Phencyclidine Screen Neg (NEG) Urine Amphetamine/Methamphetamine Neg (NEG) Urine Benzodiazepines Screen Neg (NEG) Urine Cocaine Screen Neg (NEG) Urine Cannabinoids Screen Neg (NEG) Urine Ethyl Alcohol Neg (NEG) Triglycerides Level 109mg/dL (0-150) Cholesterol Level 156mg/dL (0-200) LDL Cholesterol, Calculated 88mg/dL (0-100) VLDL Cholesterol, Calculated 22mg/dL (0-40) HDL Cholesterol 46mg/dL (40-60) Cholesterol/HDL Ratio 3.4 Medications Current Medications Tramadol HCl (Ultram) 50 mg PRN Q6HRS PRN PO MODERATE PAIN; Start 05/15/16 at 00:30 Ondansetron HCl (Zofran Odt) 4 mg PRN Q8HRS PRN PO NAUSEA/VOMITING; Start 05/15 at 00:30 Diphenhydramine HCl (Benadryl) 25 mg PRN QHS PRN PO INSOMNIA; Start 05/15/16 at 00:30 Zolpidem Tartrate (Ambien) 5 mg PRN QHS PRN PO INSOMNIA Last administered on 00:44; Start 05/15/16 at 00:30 Lorazepam (Ativan) 1 mg PRN Q4HRS PRN IV ANXIETY / AGITATION Last administered on 05/15/16 15:02; Start 05/15/16 at 09:15 Aspirin (Alex Aspirin) 325 mg DAILYWBKFT PO Last administered on 05/16/16 08: 54; Start 05/15/16 at 15:00 Gadobutrol (Gadavist) 10 mmol 1X ONCE IV Last administered on 05/15/16 15:40 ; Start 05/15/16 at 15:30; Stop 05/15/16 at 15:31; Status DC Vitamin B Complex (Folbic Tablet) 1 tab DAILY PO Last administered on 11:23; Start 05/16/16 at 11:00 Multivitamins/ Calcium (Thera M Plus) 1 tab DAILY PO Last administered on 11:23; Start 05/16/16 at 11:00 Zinc Sulfate (Orazinc) 220 mg DAILY PO Last administered on 05/16/16 11:23; Start 05/16/16 at 11:00 Vitamin D (Vitamin D3) 5,000 unit DAILY PO Last administered on 05/16/16 11:23 ; Start 05/16/16 at 11:00 Cyanocobalamin (Vitamin B-12) 1,000 mcg 1X ONCE IM Last administered on t 11:23; Start 05/16/16 at 11:00; Stop 05/16/16 at 11:01; Status DC Active Scripts Active Meclizine Hcl 25 Mg Tablet 1 Tab PO TID PRN Vitamin D (Cholecalciferol (Vitamin D3)) 2,000 Unit Capsule 1 Cap PO DAILY Folbic Tablet (Cyanocobalamin/Fa/Pyridoxine) 1 Each Tablet 1 Tab PO DAILY Thera-M Tablet (Multivits,Ca,Minerals/Iron/Fa) 1 Each Tablet 1 Tab PO DAILY Vitals/I & O Vital Sign - Last 24 Hours 05/15/16 05/15/16 05/15/16 05/15/16 15:16 19:00 19:00 20:00 Temp 97.5 98.1 97.5 98.1 Pulse 80 80 83 Resp 20 22 B/P 134/87 143/90 160/91 Pulse Ox 99 94 O2 Delivery Room Air Room Air Room Air 05/15/16 05/16/16 05/16/16 05/16/16 23:00 03:00 07:00 08:00 Temp 97.9 97.9 99.9 97.9 97.9 99.9 Pulse 78 64 73 Resp 20 20 16 B/P 127/77 112/73 119/82 Pulse Ox 95 93 95 O2 Delivery Room Air Room Air Room Air Room Air Intake and Output 05/15/16 05/15/16 05/16/16 15:00 23:00 07:00 Intake Total 490 ml 1080 ml 480 ml Balance 490 ml 1080 ml 480 ml Images EEG was normal. JOSE KENDRICK MD May 16, 2016 11:32
[2016-05-16 11:37] VITALS: BP 128/86
--- NOTE | 2016-05-16 15:35 | PDOC3 ---
Discharge Summary Visit Information Date of Admission: May 15, 2016 Date of Discharge: May 16, 2016 Admitting Diagnosis: vertigo w/ weakness Admitting Diagnosis Comment: concern for TIA Final Diagnosis Arm and leg weakness dizzyness, vertigo some word finding difficulties,. reports slurred speech obesity, BMI 38 mild malnutrition, Problems Medical Problems: (1) Chest pain Status: Acute (2) Dizziness Status: Acute Brief Hospital Course Allergies Allergies Coded Allergies Type Severity Reaction Last Updated Verified No Known Drug Allergies 05/15/16 No Vital Signs Vital Signs Date Time Temp Pulse Resp B/P Pulse Ox O2 Delivery O2 Flow Rate FiO2 05/16/16 11:37 98.0 73 14 128/86 97 Room Air 98.0 05/15/16 11:00 95.0 Lab Results Laboratory Tests Test 05/15/16 04:20 05/15/16 04:25 05/15/16 13:00 05/16/16 06:50 Sodium Level 142mmol/L (136-145) Potassium Level 4.9mmol/L (3.5-5.1) Chloride Level 108mmol/L (98-107) Carbon Dioxide Level 24mmol/L (21-32) Anion Gap 10 (6-14) Blood Urea Nitrogen 11mg/dL (8-26) Creatinine 1.3mg/dL (0.7-1.3) Estimated GFR (Cockcroft-Gault) 57.7 BUN/Creatinine Ratio 8 (6-20) Glucose Level 166mg/dL (70-99) Calcium Level 8.4mg/dL (8.5-10.1) Magnesium Level 2.3mg/dL (1.8-2.4) Total Bilirubin 0.9mg/dL (0.2-1.0) Aspartate Amino Transf (AST/SGOT) 19U/L (15-37) Alanine Aminotransferase (ALT/SGPT) 25U/L (16-63) Alkaline Phosphatase 87U/L (46-116) Total Protein 6.8g/dL (6.4-8.2) Albumin 3.2g/dL (3.4-5.0) Albumin/Globulin Ratio 0.9 (1.0-1.7) White Blood Count 8.8x10^3/uL (4.0-11.0) Red Blood Count 4.83x10^6/uL (4.30-5.70) Hemoglobin 14.7g/dL (13.0-17.5) Hematocrit 44.2% (39.0-53.0) Mean Corpuscular Volume 92fL (79-100) Mean Corpuscular Hemoglobin 31pg (25-35) Mean Corpuscular Hemoglobin Concent 33g/dL (31-37) Red Cell Distribution Width 14.4% (11.5-14.5) Platelet Count 175x10^3/uL (140-400) Neutrophils (%) (Auto) 90% (31-73) Lymphocytes (%) (Auto) 9% (24-48) Monocytes (%) (Auto) 1% (0-9) Eosinophils (%) (Auto) 0% (0-3) Basophils (%) (Auto) 0% (0-3) Neutrophils # (Auto) 8.0x10^3uL (1.8-7.7) Lymphocytes # (Auto) 0.7x10^3/uL (1.0-4.8) Monocytes # (Auto) 0.1x10^3/uL (0.0-1.1) Eosinophils # (Auto) 0.0x10^3/uL (0.0-0.7) Basophils # (Auto) 0.0x10^3/uL (0.0-0.2) Segmented Neutrophils % 90% (35-66) Lymphocytes % 7% (24-48) Monocytes % 1% (0-10) Basophils % 1% (0-3) Metamyelocytes % 1% (0-0) Platelet Estimate Adequate (ADEQUATE) Vitamin B12 Level 368pg/mL (211-946) Thyroid Stimulating Hormone (TSH) 0.498uIU/mL (0.358-3.74) Urine Collection Type Unknown Urine Color Yellow Urine Clarity Clear Urine pH 6.0 Urine Specific [place] 1.015 Urine Protein Negativemg/dL (NEG-TRACE) Urine Glucose (UA) 500mg/dL (NEG) Urine Ketones (Stick) Negativemg/dL (NEG) Urine Blood Negative (NEG) Urine Nitrite Negative (NEG) Urine Bilirubin Negative (NEG) Urine Urobilinogen Dipstick 0.2mg/dL (0.2 mg/dL) Urine Leukocyte Esterase Negative (NEG) Urine RBC Rare/HPF (0-2) Urine WBC 0/HPF (0-4) Urine Squamous Epithelial Cells Occ/LPF Urine Bacteria 0/HPF (0-FEW) Urine Opiates Screen Neg (NEG) Urine Methadone Screen Neg (NEG) Urine Barbiturates Neg (NEG) Urine Phencyclidine Screen Neg (NEG) Urine Amphetamine/Methamphetamine Neg (NEG) Urine Benzodiazepines Screen Neg (NEG) Urine Cocaine Screen Neg (NEG) Urine Cannabinoids Screen Neg (NEG) Urine Ethyl Alcohol Neg (NEG) Triglycerides Level 109mg/dL (0-150) Cholesterol Level 156mg/dL (0-200) LDL Cholesterol, Calculated 88mg/dL (0-100) VLDL Cholesterol, Calculated 22mg/dL (0-40) HDL Cholesterol 46mg/dL (40-60) Cholesterol/HDL Ratio 3.4 Laboratory Tests Test 05/16/16 06:50 Triglycerides Level 109mg/dL (0-150) Cholesterol Level 156mg/dL (0-200) LDL Cholesterol, Calculated 88mg/dL (0-100) VLDL Cholesterol, Calculated 22mg/dL (0-40) HDL Cholesterol 46mg/dL (40-60) Cholesterol/HDL Ratio 3.4 Brief Hospital Course Mr. Menjivar is a 55 old male, admit with slurred speech, dizzyness, extremities weakness, better at 12 hours later consider TIA sx, w/u MRI, carotids, neuro consult EEG neg, above normal ECHO Left ventricle systolic function is normal. The Ejection Fraction is 60-65% . No significant valvular disease. Discharge Information Condition at Discharge: Improved Follow Up: Weeks Disposition/Orders: D/C to Home Scheduled Cholecalciferol (Vitamin D3) (Vitamin D) 1 CAP PO DAILY Cyanocobalamin/Fa/Pyridoxine (Folbic Tablet) 1 TAB PO DAILY Multivits,Ca,Minerals/Iron/Fa (Thera-M Tablet) 1 TAB PO DAILY Scheduled PRN Meclizine Hcl (Meclizine Hcl) 1 TAB PO TID PRN PRN vertigo Patient Instructions Patient Instructions time > 30, min f/u WILTON Horton MD May 16, 2016 15:35
== END 2016-05-16 11:45 | disposition home or self-care (01) ==
LOC: 5 NORTH 23:31 → INTOOBSV 23:31
PROVIDERS: ADMIT Internal Medicine; ATTEND Internal Medicine
DX: R53.1 Weakness (principal); R42 Dizziness and giddiness; R47.81 Slurred speech; E66.9 Obesity, unspecified; E44.1 Mild protein-calorie malnutrition; I10 Essential (primary) hypertension; R41.0 Disorientation, unspecified; F10.10 Alcohol abuse, uncomplicated; Z68.38 Body mass index [BMI] 38.0-38.9, adult
CPT/HCPCS: 36415; 70553; 80053; 80061; 81001; 82607; 83735; 84443; 85007; 85027; 93880; 95816; 96372; 96374; A9585; C8929; G0378; G0379; G0481; J2060; J3420

== ENCOUNTER → 2017-03-08 | Day surgery (SDC) | payer BC ==
[~2017-03-08] MED LIST: LIDOCAINE 2% PF Vial for OR 5 ML VIAL.; PROPOFOL 20 ML IV
[2017-03-08] MEDS: IV RINGERS,LACTATED 1000ML 1,000 ML IV (06:35)
== END | disposition home or self-care (01) ==
LOC: ENDOS 06:05
DX: Z09 Encounter for follow-up examination after completed treatment for conditions other than malignant neoplasm (principal); K64.0 First degree hemorrhoids; K57.30 Diverticulosis of large intestine without perforation or abscess without bleeding; Z86.69 Personal history of other diseases of the nervous system and sense organs; Z98.890 Other specified postprocedural states
CPT/HCPCS: 45378; J2704

== ENCOUNTER → 2017-12-27 | Outpatient (CLI) | payer BC ==
[2017-03-08 07:51] VITALS: BP 111/82
[~2017-12-27] MED LIST changes: +CHOL2000 PO; +CYAN1TAB19 PO; -LIDOCAINE 2% PF Vial for OR 5 ML VIAL.; +MECL25TA3 PO; +MULT1TAB90 PO; -PROPOFOL 20 ML IV
--- NOTE | 2018-02-17 12:26 | RAD ---
MR#: [id number] Date of Study: 12/27/2017 Ordering Physician: ZACK NINA Referring Physician: HENRRY SALES Tech: APPROVED REPORT Test Type: Exercise Stress Nurse/Tech: Lois Britton RN Test Indications: Blood pressure elevated Cardiac History: Hypertension Medications: See Electronic Medical Record Medical History: See Electronic Medical Record Resting ECG: SR Resting Heart Rate: 79 bpm Resting Blood Pressure: 124/84mmHg Pretest Chest Pain: None Nurse/Tech Notes S1,S2 and lungs are clear to auscultation. Consent: The procedure was explained to the patient in lay terms. Informed consent was witnessed. Temo maria was entered into [employer]. History and Stress Test performed by ANDREY Kessler Stress Symptoms Fatigue POST EXERCISE Reason for Termination: Reached target heart rate, Fatigue Target HR: Yes Max HR: 155 bpm 110% of Maximum Predicted HR: 155 bpm Exercise duration: 6:43 min:sec, 3 Stage Exercise capacity: 10.0METs Max Blood Pressure: 149/81mmHg Blood Pressure response to exercise: Normal blood pressure response during stress. Heart Rate response to exercise: WNL Chest Pain: No. Arrhythmia: No. ST Change: Yes. ST segment in V1 is inverted throughout study. INTERPRETATION Stress EKG Conclusion: Negative for ischemia. Conclusion 1. Average exercise capacity with 7min a Angel protocol 2. Normal resting and exercise EKG 3. Blunted BP response. 4. No angina with exercise. Recommendations Low risk study. Signed by : Torsten Huddleston, Electronically Approved : 02/17/2018 12:26:18
== END | disposition home or self-care (01) ==
LOC: NM 07:38
PROVIDERS: ATTEND Neuromusculoskeletal Medicine & OMM
DX: Z00.00 Encounter for general adult medical examination without abnormal findings (principal); I10 Essential (primary) hypertension
CPT/HCPCS: 93017

== ENCOUNTER → 2018-01-20 | Outpatient (CLI) | payer BC ==
[2017-03-08 07:51] VITALS: BP 111/82
--- NOTE | 2018-01-21 13:02 | SLEEP ---
DATE OF STUDY: 01/20/2018 REFERRING PERSON: Lucy Yu APRN The patient is 57 years old who weighs 260 pounds and is 69 inches tall with a BMI of 38.4. The patient's Jewell score was 13. The patient underwent home sleep study performed by [facility]. Total recording time was 470 minutes. During the night study, the patient had 55 obstructive apneas, 8 central apneas and 10 mixed apneas and 59 hypopneas. The patient's apnea hypopnea index was 16.8 per hour. Supine sleep was not seen. Nocturnal oximetry study revealed an average oxygen saturation of 91% with lowest of 73%. 37 minutes were spent in oxygen saturation of less than 90%. Mean heart rate was 79 beats per minute. IMPRESSION: 1. Moderate sleep apnea-hypopnea syndrome at an AHI of 16.8 per hour. 2. Nocturnal hypoxia secondary to obstructive sleep apnea. RECOMMENDATIONS: 1. The patient would benefit from in-lab CPAP titration study. Alternate treatment option would be a home auto-titration study. 2. Follow up in 4-6 weeks after PAP treatment to assess compliance and to document clinical improvement. 3. Weight loss is strongly advised. 4. 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 5. Caution regarding driving until symptoms of sleep apnea resolve with the above recommendations. ROSEMARY RUSSELL MD DR: MELVIN/jacob JOB#: [id number] / [id number]
== END | disposition home or self-care (01) ==
LOC: RT 07:44
PROVIDERS: ATTEND Internal Medicine Cardiovascular Disease
DX: G47.33 Obstructive sleep apnea (adult) (pediatric) (principal); G47.34 Idiopathic sleep related nonobstructive alveolar hypoventilation; I12.9 Hypertensive chronic kidney disease with stage 1 through stage 4 chronic kidney disease, or unspecified chronic kidney disease; N18.9 Chronic kidney disease, unspecified; Z79.899 Other long term (current) drug therapy
CPT/HCPCS: G0399

== ENCOUNTER → 2018-03-26 | Outpatient (CLI) | payer BC ==
[2017-03-08 07:51] VITALS: BP 111/82
[~2018-03-26] MED LIST changes: +ZOLPIDEM 5 MG TABLET. PO ONE
--- NOTE | 2018-04-01 13:50 | SLEEP ---
DATE OF STUDY: ATTENDING PHYSICIAN: Dr. Huddleston. The patient is 57 years old who weighs 260 pounds. The patient had a home sleep study on 01/20/2018 and was found to have moderate JUSTA at an AHI of 16.8 per hour along with nocturnal hypoxia. He returned for in-lab CPAP titration study. During the night study, the patient spent 416 minutes in bed and slept for 352 minutes with a sleep efficiency of 85%. Sleep latency was 5 minutes with a REM latency of 200 minutes. Overall, sleep architecture showed normal stage 1 sleep, increased stage 2 sleep, normal slow wave and reduced REM sleep. The patient was started on CPAP at 5 cm water and titrated up to 12 cm water. At the final pressure, the patient slept for 137 minutes. The patient had supine as well as REM sleep. The patient's AHI was reduced to 1 per hour and oxygen saturation remained above 91%. The patient used a full facemask. EKG monitoring revealed normal sinus rhythm. No sustained arrhythmias observed. Average heart rate was 74 beats per minute. PLMs were seen at index of 11 per hour and 2 per hour caused EEG arousals. IMPRESSION: 1. Sleep apnea diagnosed by previous home sleep study. 2. Mild periodic limb movements without any significant EEG arousals. This does not need to be treated. RECOMMENDATIONS: 1. CPAP at 12 cm water completely eliminated the patient's sleep apnea and should be used on a nightly basis. 2. Follow up in 4-6 weeks to assess compliance with CPAP and to document clinical improvement. 3. Weight loss is strongly advised. 4. 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 5. Caution regarding driving until symptoms of sleep apnea resolve with the use of CPAP. ROSEMARY RUSSELL MD DR: MELVIN/jacob JOB#: [id number] / [id number] ANDREA Desai MD
== END | disposition home or self-care (01) ==
LOC: RT 18:09
PROVIDERS: ATTEND Internal Medicine Critical Care Medicine
DX: G47.33 Obstructive sleep apnea (adult) (pediatric) (principal)
CPT/HCPCS: 95811

== ENCOUNTER → 2019-12-22 | Outpatient (CLI) | payer BC ==
[2017-03-08 07:51] VITALS: BP 111/82
[~2019-12-22] MED LIST changes: +GABA300C18 PO; +HYDR-2761 PO; +IBUP-1060 PO; +IOHEXOL 180 MG/ML 10 ML VIAL. ONE; +MECL-75 PO; -MECL25TA3 PO; +OLME20TA17 PO; +PHEN37.53 PO; +TEST200V3 IM; -ZOLPIDEM 5 MG TABLET. PO ONE; +methylPREDNISolone ACETATE 40 MG/ML VIAL. ONE; +methylPREDNISolone ACETATE 80 MG/ML VIAL. ONE
--- NOTE | 2019-12-22 09:48 | PDOC1 ---
INITIAL PAIN CONSULT DATE OF SERVICE: DOS: DATE: 12/22/19 TIME: 09:41 CHIEF COMPLAINT: Chief Complaint: Neck and right upper extremity pain HISTORY OF PRESENT ILLNESS: 59-year-old male presents history of pain for about 3 months base the neck right upper extremity without any specific injury or accident he is aware of patient remodeling his house and doing a lot of repetitive work with his right arm and shoulder lifting hammering etc. with increased pain and numbness and tingling down the base of the neck going to the right upper extremity anterior posterior deltoid triceps biceps anterior posterior forearm and into the hand involving all the fingers with numbness and tingling patient describes the pain is constant sharp throbbing shooting in the right arm cramping and burning with so me numbness and tingling in the hand with some decreased stamina in the right arm with fatigability but no overt muscular or motor loss. Patient reports it wakes him from sleep about 2-3 times a night does not affect his bowel bladder control does affect his ability to walk and do other activities patient reports he is doing some stretching on his own is been taking ibuprofen as well as hydrocodone neither 1 of which is decreased the pain significantly. Patient rates his disability rating from 0-10 10 being the worst as a 10 in all categories family home responsibilities social activity recreation occupation sexual behavior self-care and life support activities. Patient have an MRI scan of the cervical spine showing multilevel spondylosis most pronounced at C6-7 with spinal canal stenosis compression of thecal sac and mild distortion of the spinal cord contour without spinal cord signal abnormality high-grade bilateral neural foraminal stenosis present at C6-C7. PAST MEDICAL HISTORY: PMH: Hypertension, arthritis, benign prostatic hypertrophy PREVIOUS SURGERIES: Past Surgical Hx: Cervical fusion C5-6 approximate 20 years ago, left inguinal hernia repair, tonsillectomy CURRENT MEDICATIONS: Current Meds: Active Scripts Medications Dose Route/Sig Max Daily Dose Days Date Category Ibuprofen 800 Mg Tablet 800 Mg PO PRN Q6HRS PRN 12/22/19 Reported Hydrocodone-Apap 5-325 (Hydrocodone Bit/Acetaminophen) 1 Tab Tablet 1 Tab PO PRN Q6HRS PRN 12/22/19 Reported Gabapentin (Gabapentin) 300 Mg Capsule 300 Mg PO HS 12/22/19 Reported Phentermine Hcl 37.5 Mg Capsule 37.5 Mg PO DAILY 9/29/20 Reported Testosterone Cypionate 200 Mg/1 Ml Vial 1 Ml IM Q2WKS 12/22/19 Reported Benicar (Olmesartan Medoxomil) 20 Mg Tablet 1 Tab PO DAILY 30 12/22/19 Reported ALLERGIES; Allergies: Coded Allergies: No Known Drug Allergies (Unverified , 03/08/17) FAMILY HISTORY: Family Hx: No major medical problems or conditions he is aware of SOCIAL HISTORY: Social Hx: Patient drinks alcohol 1-2 drinks occasionally does not smoke not use any illegal illicit recreational drugs is lives with his spouse is recently retired approximately 10 months ago REVIEW OF SYSTEMS: ROS: Positive for those items mentioned in history of present illness, all systems are reviewed, otherwise negative, is complete full and well-documented on patient's chart PHYSICAL EXAM: VS: Blood pressure is 168/104 pulse 61 respiration 16 temperature 90.0 F height is 5 feet 9 inches weight is 253 pounds PE: PHYSICAL EXAMINATION: GENERAL: The patient is awake, alert, oriented, appropriate, very pleasant demeanor HEENT: Shows normocephalic, atraumatic. Extraocular movements are intact and symmetrical. Oral cavity: Mucous membranes moist and pink. Dentition is intact. NECK: Shows anterior throat supple without palpable lymphadenopathy noted. Swallow reflex symmetrical. CHEST: Shows normal on inspection. Breath sounds are clear bilaterally, no rales rhonchi wheezes auscultated. HEART: Shows S1, S2 clear. No murmurs auscultated. ABDOMEN: Soft, nontender, nondistended, obese. No palpable organomegaly is noted. No rebound or guarding demonstrated. BACK: Shows spine grossly in the midline. Normal-appearing cervical lordotic curvature cervical paraspinous muscles show symmetrical on inspection with palpation some moderate tenderness diffusely in the middle and lower distribution the paraspinous muscles more pronounced on the right than the left but symmetrical without evidence of atrophy hypertrophy no trigger points patient has good rotation motion cervical spine both laterally greater than 45 degrees closer to 90 degrees as well as full extension full forward flexion with only minor pain in the right shoulder with right lateral rotation as well as extension. There is slightly increased thoracic kyphosis, some minor flattening of the lumbar lordotic curvature. Lumbar paraspinous muscles show symmetrical on inspection, on palpation shows some moderate tenderness diffusely throughout the upper, middle and lower distribution of the paraspinous muscles bilaterally without specific trigger points, without radiation of pain. The patient has good rotational motion of the lumbar spine, both laterally as well as extension and flexion without significant difficulty. No tenderness over the spinous processes, sacrum or sacroiliac regions. EXTREMITIES: Upper extremities show deep tendon reflexes 2+ in the biceps and tricep tendons. 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 Peripheral pulses are 2+ radial. No peripheral edema is noted bilaterally. Upper extremities are warm and dry to touch, equal in color and appearance. Shoulder shrug is strong and symmetrical without loss of strength on resistance but with some moderate pain reported base the neck on the right side of right shoulder this is true with abduction of the shoulder 90 degrees but again without loss of strength on resistance bilaterally. SKIN: Shows warm and dry, good turgor. No edema. No sores, rashes or bruising throughout. IMPRESSION: Impression: 59-year-old male with approximate 3-month history increasing pain base of neck right upper extremity radicular fashion MRI scan cervical spine as noted Arthritis Hypertension Plan: Options were discussed with the patient including conservative medical management physical therapies interventional techniques. He would like to pursue interventional techniques we discussed a cervical epidural steroid injection using description as well as anatomical model to describe the procedure. Risks were discussed including but not limited to: Bleeding, infection, possibility of epidural hematoma and subsequent neurological compromise, dural puncture, headaches, spinal cord and/or nerve damage, side effects of steroid medication, and poor results regarding pain control. Patient understands wished to proceed. Patient return to clinic in approximate 2 weeks for follow-up was counseled as to return appointment activity level and side effects to be aware of. Procedure cervical epidural steroid injection at the C6-7 level, using local anesthetic under sterile prep and drape using C-arm fluoroscopic guidance under local anesthesia medications injected ; 120 mg Depo-Medrol + 5 mL normal saline and 2 mL contrast; condition at discharge is stable patient tolerated procedure well. and had no complications ARUN SINGER MD Dec 22, 2019 09:48
== END | disposition home or self-care (01) ==
LOC: PNCL 07:48
PROVIDERS: ATTEND Anesthesiology
DX: M54.2 Cervicalgia (principal); M79.601 Pain in right arm; M19.90 Unspecified osteoarthritis, unspecified site; M48.02 Spinal stenosis, cervical region; M47.812 Spondylosis without myelopathy or radiculopathy, cervical region; I10 Essential (primary) hypertension; N40.0 Benign prostatic hyperplasia without lower urinary tract symptoms; Z79.01 Long term (current) use of anticoagulants; Z79.899 Other long term (current) drug therapy; Z98.890 Other specified postprocedural states
CPT/HCPCS: 62321; J1030; J1040; Q9965

== ENCOUNTER → 2020-01-05 | Outpatient (CLI) | payer BC ==
[2017-03-08 07:51] VITALS: BP 111/82
--- NOTE | 2020-01-05 08:23 | PDOC ---
Progress Note - Pain Clinic Date of Service: DOS: DATE: 01/05/20 TIME: 08:18 Diagnosis: Dx: Cervical radiculopathy with cervical degenerative disc disease cervical spinal stenosis and post cervical laminectomy syndrome History or Present Illness: HPI: 59-year-old male returns follow-up status post cervical epidural steroid injection x1. Patient reports near 100% improvement for the first 2 weeks after the injection and pain returning down the base of the neck and the right upper extremity radiating the posterior deltoid posterior triceps and into the forearm and hand on the right side patient reports he has been much more active increase his activity back to normal sleeping much better reports has been doing better with distance walking household activities work activities try with greater ease and comfort patient reports is 8 on a scale of 10 is worse over the past week for an average to its least is a 2 today patient reports the pain is shooting tingling burning stabbing at times on and off in intensity much improved pain is again beginning to return with some minor weakness in the right triceps but otherwise doing much better. Patient reports no new motor or sensory deficits or other complaints. Physical Exam: VS: Blood pressure is 144/97 pulse is 67 respirations 18 temperature is 98.3 F weight is 251 pounds PE: PHYSICAL EXAMINATION: GENERAL: The patient is awake, alert, oriented, appropriate, very pleasant demeanor HEENT: Shows normocephalic, atraumatic. Extraocular movements are intact and symmetrical. NECK: Shows anterior throat supple without palpable lymphadenopathy noted. Swallow reflex symmetrical. CHEST: Shows normal on inspection. Breath sounds are clear bilaterally. HEART: Shows S1, S2 clear. No murmurs auscultated. ABDOMEN: Soft, nontender, nondistended, obese. No palpable organomegaly is noted. No rebound or guarding demonstrated. BACK: Shows spine grossly in the midline. Normal-appearing cervical lordotic curvature. Cervical paraspinous muscles show symmetrical on inspection on palpation some moderate tenderness diffusely bilaterally diffusely without significant radiation. Patient shows good rotation motion cervical spine full extension as well as right and left lateral rotation with some minor pain with far right rotation but without specific radiation. There is slightly increased thoracic kyphosis, some minor flattening of the lumbar lordotic curvature. Lumbar paraspinous muscles show symmetrical on inspection, on palpation shows some moderate tenderness diffusely throughout the upper, middle and lower distribution of the paraspinous muscles bilaterally, without specific trigger points, without radiation of pain. The patient has good rotational motion of the lumbar spine, both laterally as well as extension and flexion without significant difficulty. No tenderness over the spinous processes, sacrum or sacroiliac regions. EXTREMITIES: Upper extremities show deep tendon reflexes 2+ in the biceps and triceps tendons. 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 Peripheral pulses are 2+ radial. No peripheral edema is noted bilaterally. Upper extremities are warm and dry to touch, equal in color and appearance. Shoulder shrug is strong and intact,with some minor pain with resistance ,but no loss of strength on resistance on the right side only. SKIN: Shows warm and dry, good turgor. No edema. No sores, rashes or bruising throughout. Procedure: Procedure: Options were discussed with the patient. Patient old chart was reviewed, his current medication regimen updated, current review of systems updated today as well. We will proceed with a second cervical epidural steroid injection today with fluoroscopic guidance. Risks were discussed including but not limited to: Bleeding, infection, possibility of epidural hematoma and subsequent neurological compromise, dural puncture, headaches, spinal cord and/or nerve damage, side effects of steroid medication, and poor results regarding pain control. Patient understands wished to proceed. Patient will return to the clinic in possibly 2 weeks for follow-up was counseled as to return appointment activity level and side effects to be aware of. Medication Injected: Med Injected: Procedure cervical epidural steroid injection at the C6-7 level, using local a nesthetic under sterile prep and drape using C-arm fluoroscopic guidance under local anesthesia medications injected ; 120 mg Depo-Medrol + 5 mL normal saline and 2 mL contrast; condition at discharge is stable patient tolerated procedure well. and had no complications Condition at Discharge: Condition at Discharge: Condition at discharge is stable patient tolerated procedure well had no complications. ARUN SINGER MD Jan 05, 2020 08:23
--- NOTE | 2020-01-05 09:02 | PDOC ---
Progress Note - Pain Clinic Date of Service: DOS: DATE: 01/05/20 TIME: 08:59 Diagnosis: Dx: Lumbar radiculopathy with lumbar degenerative disc disease History or Present Illness: HPI: 45-year-old male returns follow-up status post lumbar procedure injection x1 October 12, 2019. Patient reports near 100% improvement initially now about 75% for the past 2 months patient reports that he is increase his distance walking doing work activities household activities much greater ease and comfort still some pain in the right lower extremity returning down the posterior gluteus radiating the posterior thigh and into the posterior lateral calf patient reports is a 6 on a scale of 10 is worst over the past week 3 on average to its least is a 2 today. Patient reports that sharp and shooting can be aching and dull with some cramping pain in the low back itself but radiating the right lower extremity. Patient reports no new motor or sensory deficits he sleeping better at night reports pain began return about a week ago and is not nearly back to baseline but is still significant. Patient reports no bowel or bladder incontinence no new motor or sensory deficits. Physical Exam: VS: Blood pressure is 129/87 pulse 66 respirations 18 temperature 98.1 F height is 6 foot weight is 282 pounds PE: PHYSICAL EXAMINATION: GENERAL: The patient is awake, alert, oriented, appropriate, very pleasant demeanor HEENT: Shows normocephalic, atraumatic. Extraocular movements are intact and symmetrical. Oral cavity: Mucous membranes moist and pink. NECK: Shows anterior throat supple without palpable lymphadenopathy noted. Swal low reflex symmetrical. CHEST: Shows normal on inspection. Breath sounds are clear bilaterally, no rales rhonchi or wheezes auscultated. HEART: Shows S1, S2 clear. No murmurs auscultated. ABDOMEN: Soft, nontender, nondistended, obese. No palpable organomegaly is noted. No rebound or guarding demonstrated. BACK: Shows spine grossly in the midline. Normal-appearing cervical lordotic curvature. There is slightly increased thoracic kyphosis, some minor flattening of the lumbar lordotic curvature. Lumbar paraspinous muscles show symmetrical on inspection, on palpation shows some moderate tenderness diffusely throughout the upper, middle and lower distribution of the paraspinous muscles bilaterally, but without specific trigger points, without radiation of pain. The patient has good rotational motion of the lumbar spine, both laterally as well as extension and flexion without significant difficulty. No tenderness over the spinous processes, sacrum or sacroiliac regions. EXTREMITIES: Lower extremities show deep tendon reflexes 2+ in the patellar and tendo calcaneus tendons. Motor exam is 5 on a scale of 5 with right dorsiflexion, extension, quadriceps and hamstring flexion and 5/5 on the left. Peripheral pulses are 1+ posterior tibial. No peripheral edema is noted bilaterally. Lower extremities are warm and dry to touch, equal in color and appearance. SKIN: Shows warm and dry, good turgor. No edema. No sores, rashes or bruising throughout. Procedure: Procedure: Options were discussed with the patient. Patient chart was reviewed his current medication regimen updated current review of systems updated today as well. We will proceed with a second in the series lumbar epidural steroid injection today with fluoroscopic guidance. Risks were discussed including but not limited to: Bleeding, infection, possibility of epidural hematoma and subsequent neurological compromise, dural puncture, headaches, spinal cord and/or nerve damage, side effects of steroid medication, and poor results regarding pain control. Patient understands wished to proceed. Patient will return to clinic in approximate 2 weeks for follow-up was counseled as to return appointment activity level and side effects to be aware of. Medication Injected: Med Injected: Procedure is lumbar epidural steroid injection under local anesthetic using sterile prep and drape at the L5-S1 level using C-arm fluoroscopic guidance in both AP and lateral views medications injected is 120 mg Depo-Medrol + 10 mL preservative-free normal saline and 2 mL contrast- condition at discharge is stable patient tolerated procedure well had no complications. Condition at Discharge: Condition at Discharge: Condition at discharge is stable, patient tolerated the procedure well and had no complications. ARUN SINGER MD Jan 05, 2020 09:02
--- NOTE | 2020-01-05 11:09 | PDOC ---
Progress Note - Pain Clinic Date of Service: DOS: DATE: 01/05/20 TIME: 11:09 Diagnosis: Dx: Note dated January 05, 2020 timed 0903 was inadvertently dictated on the wrong patient chart Physical Exam: PE: PHYSICAL EXAMINATION: GENERAL: The patient is awake, alert, oriented, appropriate, very pleasant demeanor HEENT: Shows normocephalic, atraumatic. Extraocular movements are intact and symmetrical. Oral cavity: Mucous membranes moist and pink. Dentition is intact. NECK: Shows anterior throat supple without palpable lymphadenopathy noted. Swallow reflex symmetrical. CHEST: Shows normal on inspection. Breath sounds are clear bilaterally. HEART: Shows S1, S2 clear. No murmurs auscultated. ABDOMEN: Soft, nontender, nondistended. No palpable organomegaly is noted. No rebound or guarding demonstrated. BACK: Shows spine grossly in the midline. Normal-appearing cervical lordotic curvature. There is slightly increased thoracic kyphosis, some minor flattening of the lumbar lordotic curvature. Lumbar paraspinous muscles show symmetrical on inspection, on palpation shows some moderate tenderness diffusely throughout the upper, middle and lower distribution of the paraspinous muscles bilaterally and also into the lower thoracic paraspinous musculature, firm and tender, but without specific trigger points, without radiation of pain. The patient has good rotational motion of the lumbar spine, both laterally as well as extension and flexion without significant difficulty. No tenderness over the spinous processes, sacrum or sacroiliac regions. EXTREMITIES: Lower extremities show deep tendon reflexes [] in the patellar and tendo calcaneus tendons. Motor exam is [] on a scale of 5 with right dorsiflexion, extension, quadriceps and hamstring flexion and []/5 on the left. Peripheral pulses are [] posterior tibial. [] peripheral edema is noted bilaterally. Lower extremities are warm and dry to touch, equal in color and appearance. Straight leg raise noted to be [] on the right about [] degrees, left side is []. Gaenslen's and Mendoza's maneuvers are [] as well. The patient is able to []. SKIN: Shows warm and dry, good turgor. No edema. No sores, rashes or bruising throughout. ARUN SINGER MD Jan 05, 2020 11:09
== END ==
LOC: PNCL 07:57
PROVIDERS: ATTEND Anesthesiology
DX: M50.123 Cervical disc disorder at C6-C7 level with radiculopathy (principal); M48.02 Spinal stenosis, cervical region; I10 Essential (primary) hypertension; M51.16 Intervertebral disc disorders with radiculopathy, lumbar region
CPT/HCPCS: 62321; J1030; J1040; Q9965